=== PATIENT | male | born 1975 | race Caucasian/White ===

== ENCOUNTER 2022-09-05 11:09 | Outpatient (CLI) | payer OTHER, SELFPAY | END 2022-09-05 11:10 | disposition home or self-care (01) | LOC: OP CLINIC 11:10 | PROVIDERS: PCP Internal Medicine; Visit Provider Internal Medicine | DX: Z12.11 Encounter for screening for malignant neoplasm of colon (principal) | CPT/HCPCS: 45378; J2250; J3010 ==